=== PATIENT | female | born 1975 | race African-American/Black ===

== ENCOUNTER 2017-06-25 04:12 | Emergency (ER) | payer OTHER ==
[~2017-06-25] VITALS: Ht 177.8 cm; Wt 86.0 kg
[2017-06-25] MEDS ORDERED: ONDANSETRON HCL 4MG/2ML VIAL IV STA (04:52)
[2017-06-25] MEDS ORDERED: SODIUM CHLORIDE 0.9% 1,000 ML IV ONE (04:52)
[2017-06-25] MEDS ORDERED: LORAZEPAM 2MG/ML CPJ IV ONE (05:00)
[2017-06-25] MEDS ORDERED: LEVETIRACETAM 500MG PREMIX 100 ML IV ONE (05:00)
[2017-06-25 05:13] LABS: BASOPHILS % 0.3 % (0.0-2.0); EOSINOPHILS % 0.4 % (0.0-5.0); HEMATOCRIT. 35.9 % (36.0-48.0); LYMPHOCYTES % 21.9 % (20.0-50.0); MEAN CORPUSCULAR HEMOGLOBIN 31.9 pg (28.0-32.0); MEAN CORPUSCULAR VOLUME 95.4 fL (81.0-99.0); MEAN PLATELET VOLUME 8.8 fl (7.4-10.4); MONOCYTES % 6.8 % (2.0-8.0); NEUTROPHILS % 70.6 % (40.0-76.0); PLATELET 208 x1000/uL (130-400); RED BLOOD CELL COUNT 3.76 mill/uL (4.2-5.4); RED CELL DISTRIBUTION WIDTH 13.2 % (11.6-14.6)
[2017-06-25 05:20] LABS: CLARITY URINE CLEAR (CLEAR); COLOR URINE YELLOW (YELLOW); KETONES URINE NEGATIVE (NEGATIVE); LEUKOCYTE ESTERASE URINE NEGATIVE (NEGATIVE); NITRITE URINE NEGATIVE (NEGATIVE); OCCULT BLOOD URINE NEGATIVE (NEGATIVE); PROTEIN URINE 1+ (NEGATIVE); SPECIFIC GRAVITY URINE 1.024 (1.005-1.030); UROBILINOGEN URINE 0.2 E.U./dL (0.2-1.0)
[2017-06-25 05:20] LABS: CHLORIDE 106 mEq/L (98-107)
[2017-06-25 05:23] LABS: ETHANOL BLOOD < 10 mg/dL
[2017-06-25 05:33] LABS: *AMPHETAMINES SCREEN URINE NEGATIVE (NEGATIVE); *BARBITURATES SCREEN URINE NEGATIVE (NEGATIVE); *BENZODIAZEPINES SCREEN URINE NEGATIVE (NEGATIVE); *COCAINE SCREEN URINE NEGATIVE (NEGATIVE); METHADONE URINE SCREEN NEGATIVE (NEGATIVE)
[2017-06-25 05:34] LABS: CANNABINOID URINE SCREEN NEGATIVE (NEGATIVE); OPIATES URINE SCREEN NEGATIVE (NEGATIVE); PHENCYCLIDINE URINE SCREEN NEGATIVE (NEGATIVE)
[2017-06-25 09:20] VITALS: BP 122/76
== END 2017-06-25 09:35 | disposition home or self-care (01) ==
LOC: ER 04:22
DX: G40.909 Epilepsy, unspecified, not intractable, without status epilepticus (principal)
CPT/HCPCS: 36415; 70450; 71045; 80053; 80305; 81003; 81025; 83605; 84484; 85025; 93005; 96365; 96375; 99285; G0482; J1953; J2060; J2405; J7030

== ENCOUNTER 2018-01-27 11:08 | Inpatient (IN) | payer OTHER ==
[~2018-01-27] VITALS: Ht 170.2 cm; Wt 53.1 kg
[2018-01-27] MEDS ORDERED: LEVETIRACETAM 1000MG/100ML 100 ML IV ONE (11:30)
[2018-01-27 11:47] LABS: BASOPHILS % 0.3 % (0.0-2.0); EOSINOPHILS % 0.1 % (0.0-5.0); HEMATOCRIT. 36.6 % (36.0-48.0); HEMOGLOBIN. 12.7 g/dL (12.0-16.0); LYMPHOCYTES % 13.8 % (20.0-50.0); MEAN CORPUSCULAR HEMOGLOBIN 33.1 pg (28.0-32.0); MEAN CORPUSCULAR VOLUME 95.3 fL (81.0-99.0); MEAN PLATELET VOLUME 8.2 fl (7.4-10.4); NEUTROPHILS % 76.8 % (40.0-76.0); PLATELET 229 x1000/uL (130-400); RED BLOOD CELL COUNT 3.84 mill/uL (4.2-5.4); RED CELL DISTRIBUTION WIDTH 12.8 % (11.6-14.6)
[2018-01-27 11:53] LABS: CHLORIDE 108 mEq/L (98-107)
[2018-01-27 11:58] LABS: ETHANOL BLOOD < 10 mg/dL
[2018-01-27 13:28] LABS: CLARITY URINE CLOUDY (CLEAR); COLOR URINE YELLOW (YELLOW); KETONES URINE 1+ (NEGATIVE); LEUKOCYTE ESTERASE URINE 2+ (NEGATIVE); NITRITE URINE NEGATIVE (NEGATIVE); OCCULT BLOOD URINE 2+ (NEGATIVE); PROTEIN URINE 1+ (NEGATIVE); SPECIFIC GRAVITY URINE 1.017 (1.005-1.030); UROBILINOGEN URINE 0.2 E.U./dL (0.2-1.0)
[2018-01-27 13:41] LABS: *AMPHETAMINES SCREEN URINE NEGATIVE (NEGATIVE); *BARBITURATES SCREEN URINE NEGATIVE (NEGATIVE)
[2018-01-27 13:42] LABS: *BENZODIAZEPINES SCREEN URINE NEGATIVE (NEGATIVE); *COCAINE SCREEN URINE NEGATIVE (NEGATIVE); METHADONE URINE SCREEN NEGATIVE (NEGATIVE)
[2018-01-27 13:43] LABS: CANNABINOID URINE SCREEN NEGATIVE (NEGATIVE); OPIATES URINE SCREEN NEGATIVE (NEGATIVE); PHENCYCLIDINE URINE SCREEN NEGATIVE (NEGATIVE)
[2018-01-27] MEDS ORDERED: ACETAMINOPHEN 325MG TABLET PO ONE (16:30)
[2018-01-27] MEDS ORDERED: ONDANSETRON HCL 4MG/2ML INJ IV PRN (19:15)
[2018-01-27] MEDS ORDERED: LORAZEPAM 2MG/ML CPJ IV PRN (19:15)
[2018-01-27] MEDS ORDERED: ACETAMINOPHEN 325MG TABLET PO PRN (19:15)
[2018-01-27 22:30] VITALS: BP 138/92
[2018-01-27] MEDS ORDERED: CEFTRIAXONE 1 G PREMIX 50 ML IV SCH (23:30)
[2018-01-28 04:00] VITALS: BP 105/65
[2018-01-28 07:28] LABS: BASOPHILS % 0.4 % (0.0-2.0); EOSINOPHILS % 0.1 % (0.0-5.0); HEMATOCRIT. 32.8 % (36.0-48.0); HEMOGLOBIN. 11.3 g/dL (12.0-16.0); LYMPHOCYTES % 21.1 % (20.0-50.0); MEAN CORPUSCULAR VOLUME 95.5 fL (81.0-99.0); MEAN PLATELET VOLUME 8.6 fl (7.4-10.4); MONOCYTES % 8.4 % (2.0-8.0); PLATELET 220 x1000/uL (130-400); RED BLOOD CELL COUNT 3.43 mill/uL (4.2-5.4); RED CELL DISTRIBUTION WIDTH 12.5 % (11.6-14.6)
[2018-01-28 08:00] VITALS: BP 108/52
[2018-01-28] MEDS: LEVETIRACETAM 500MG TABLET PO SCH ×2 (08:26→21:19)
[2018-01-28 09:36] LABS: CHLORIDE 107 mEq/L (98-107)
[2018-01-28] MEDS ORDERED: POTASSIUM CHLORIDE 20MEQ TABLET SR PO NR (13:00)
[2018-01-28 20:00] VITALS: BP 111/86
[2018-01-28] MEDS ORDERED: CEFTRIAXONE 1 G PREMIX 50 ML IV SCH (23:30)
[2018-01-29] VITALS: BP 115/68
[2018-01-29 04:00] VITALS: BP 107/66
[2018-01-29 08:00] VITALS: BP 103/64
[2018-01-29] MEDS: LEVETIRACETAM 500MG TABLET PO SCH (08:40)
[2018-01-29 12:00] VITALS: BP 111/61
[2018-01-29 16:00] VITALS: BP 121/68
[2018-01-29 17:51] VITALS: BP 120/78
[2018-01-29 17:56] LABS: CHLORIDE 105 mEq/L (98-107)
== END 2018-01-29 18:28 | disposition home or self-care (01) | DRG 53 ==
LOC: ER 11:38 → 7WST 14:02 → ENRESERV 20:22
PROVIDERS: ADMIT Internal Medicine; ATTEND Internal Medicine
DX: G40.909 Epilepsy, unspecified, not intractable, without status epilepticus (principal); E87.8 Other disorders of electrolyte and fluid balance, not elsewhere classified; N39.0 Urinary tract infection, site not specified; F79 Unspecified intellectual disabilities; Z91.19 Patient's noncompliance with other medical treatment and regimen
CPT/HCPCS: 36415; 70551; 80048; 80305; 82962; 83735; 84443; 96365; 96367; 99285; G0482; J0696; J1953; J7050

== ENCOUNTER 2022-12-01 09:29 | Emergency (ER) | payer OTHER ==
[~2022-12-01] VITALS: Ht 162.6 cm; Wt 70.0 kg
[2022-12-01 09:31] VITALS: O2SAT 100
[2022-12-01 12:10] VITALS: BP 125/82; PULSE 70; RESP 16; TEMP 98
== END 2022-12-01 12:11 | disposition home or self-care (01) ==
LOC: ER 09:29
DX: G40.909 Epilepsy, unspecified, not intractable, without status epilepticus (principal)
CPT/HCPCS: 99283; Z7610